=== PATIENT | female | born 1985 | race Caucasian/White ===

== ENCOUNTER 2016-06-03 18:16 | Emergency (ER) | payer OTHER ==
[~2016-06-03] VITALS: Wt 90.7 kg
[~2016-06-03 18:16] MED LIST: AMOXIL500 MG PO; AUGMENTIN 875 M1 TAB PO; BACTRIM DS 8001 TA1 PO; CLINDAMYCIN HC300 MG PO; DARVOCET N 1001 TAB PO; KETOROLAC10 MG PO; MIRALAX17 GM/DOSE PO; MOTRIN800 MG PO; SEPTRA DS 800 M1 TAB PO; SUBOXONE 8 MG-1 EACH SL; SUBOXONE 8 MG-21 TAB SL; ULTRAM50 MG PO; VICODIN 5/500 505 MG PO
[2016-06-03] MEDS ORDERED: AUGMENTIN 875875 MG PO (19:15)
[2016-06-03] MEDS ORDERED: ZOFRAN ODT4 MG SL (19:15)
== END 2016-06-03 19:16 | disposition home or self-care (01) ==
LOC: ED 18:16
DX: J02.0 Streptococcal pharyngitis (principal); F17.200 Nicotine dependence, unspecified, uncomplicated

== ENCOUNTER 2018-01-02 12:07 | Emergency (ER) | payer OTHER ==
[~2018-01-02] VITALS: Ht 162.5 cm; Wt 86.2 kg
[~2018-01-02 12:07] MED LIST changes: +ACYCLOVIR800 MG PO; +AUGMENTIN 875875 MG PO; +COLACE100 MG PO; +NEURONTIN100 MG PO; +ZOFRAN ODT4 MG SL
== END 2018-01-02 13:35 | disposition home or self-care (01) ==
LOC: ED 12:07
DX: B02.9 Zoster without complications (principal); Z48.00 Encounter for change or removal of nonsurgical wound dressing; Z79.899 Other long term (current) drug therapy

== ENCOUNTER 2025-03-05 19:19 | Emergency (ER) | payer OTHER ==
[~2025-03-05] VITALS: Ht 160 cm; Wt 106.6 kg
[2025-03-05] MEDS ORDERED: SODIUM CHLORIDE 0.9% 1,000 ML IV ONE (19:35)
[2025-03-05] MEDS ORDERED: diphenhydrAMINE hydrochloride 50 MG/ML VIAL IV ONE (19:35)
[2025-03-05] MEDS ORDERED: Ondansetron Hydrochloride 4 MG/2 ML VIAL IV ONE (19:35)
[2025-03-05] MEDS ORDERED: METHOCARBAMOL750 M1 PO (22:01)
== END 2025-03-05 21:58 | disposition home or self-care (01) ==
LOC: ED 19:19
DX: S16.1XXA Strain of muscle, fascia and tendon at neck level, initial encounter (principal); R51.9 Headache, unspecified; F41.9 Anxiety disorder, unspecified; F32.A Depression, unspecified; X58.XXXA Exposure to other specified factors, initial encounter; Y93.89 Activity, other specified; Y92.89 Other specified places as the place of occurrence of the external cause; Y99.8 Other external cause status